=== PATIENT | female | born 1980 | race Caucasian/White ===

== ENCOUNTER 2017-12-26 12:20 | Emergency (ER) | payer OTHER ==
[~2017-12-26] VITALS: Ht 172.7 cm; Wt 65.8 kg
[2017-12-26 12:41] LABS: HEMOGLOBIN 11.7 gm/dL (12.0-15.0); MCH 22.7 pg (26.0-34.0); MCHC 31.6 g/dL (28.0-37.0); MCV 71.8 fL (80.0-100.0); MPV 8.4 fl. (7.2-11.1); RBC 5.15 mil/uL (4.20-5.00); WBC 7.2 thou/uL (4.0-11.0)
[2017-12-26 12:49] LABS: CALCIUM 8.9 mg/dL (8.5-10.1); CREATININE 0.7 mg/dL (0.6-1.3); POTASSIUM 3.3 mmol/L (3.5-5.1)
[2017-12-26 12:54] LABS: ALBUMIN 3.8 g/dL (3.4-5.0); TOTAL BILIRUBIN 0.4 mg/dL (<0.1-1.0); TOTAL PROTEIN 7.8 g/dL (6.4-8.2)
[2017-12-26 13:38] LABS: URINE BILIRUBIN NEGATIVE (Negative); URINE BLOOD TRACE (Negative); URINE CLARITY CLEAR; URINE COLOR YELLOW; URINE GLUCOSE-RANDOM NEGATIVE (Negative); URINE KETONES TRACE (Negative); URINE LEUKOCYTES-REFLEX NEGATIVE (Negative); URINE NITRITE-REFLEX NEGATIVE (Negative); URINE PROTEIN NEGATIVE (Negative); URINE SPECIFIC GRAVITY <= 1.005 (1.005-1.030); URINE UROBILINOGEN 0.2 E.U./dl (0.2-1.0)
[2017-12-26 13:47] LABS: AMP/METHAMP Negative (Negative); BARBITURATES Negative (Negative); BENZODIAZEPINES Negative (Negative); COCAINE POSITIVE (Negative); METHADONE Negative (Negative); OPIATES POSITIVE (Negative); PCP Negative (Negative); THC Negative (Negative)
[2017-12-26] MEDS ORDERED: BENTYL 20 MG TA20 M1 PO (14:40)
[2017-12-26] MEDS ORDERED: ZOFRAN ODT4 MG PO (14:40)
[2017-12-26] MEDS ORDERED: CLONIDINE0.1 PO (14:40)
[2017-12-26 14:48] VITALS: BP 116/78
--- NOTE | 2017-12-27 15:48 | EKG ---
[place] [address] ELECTROCARDIOGRAM REPORT Name: PETRONA NIÑO Room: [facility]#: [id number] Admission: 12/26/17 Attend Phys: Discharge: 12/26/17 Date of : 82 Report #: [id number] THIS REPORT FOR: //name// [facility] ED Test Date: 2017-12-26 Test Time: 13:34:51 Pat Name: PETRONA NIÑO Department: Room: Gender: F Director Of Design: REMI : 1980 Requested By: Carlos Matthews Order Number: [id number] MD: Luiz Christensen Measurements Intervals [place] Rate: 79 P: 80 AR: 107 QRS: 73 QRSD: 82 T: 61 QT: 377 QTc: 433 Interpretive Statements Sinus rhythm Short AR interval Biatrial enlargement Minimal ST depression, diffuse leads No previous ECG available for comparison Electronically Signed On 12-27-2017 15:48:07 [employer] by Luiz Christensen [email or web address] <ELECTRONICALLY SIGNED> By: Luiz Christensen MD, [facility] 12/27/17 1548 [id number] Luiz Christensen MD, FACC /EPI
== END 2017-12-26 14:53 | disposition home or self-care (01) ==
LOC: M.ERS 12:20
PROVIDERS: Emergency Medicine Emergency Medical Services
DX: F11.23 Opioid dependence with withdrawal (principal)